=== PATIENT | male | born 1970 ===

== ENCOUNTER 2023-06-01 11:59 | Emergency (ER) | payer OTHER ==
[~2023-06-01] VITALS: Ht 167.6 cm; Wt 84.1 kg
[2023-06-01 12:08] VITALS: BP 135/79; TEMP 97.8
[2023-06-01] MEDS ORDERED: TRIAMCINOLONE A15 GM TP (13:18)
[2023-06-01] MEDS ORDERED: PREDNISONE20 MG PO (13:19)
[2023-06-01] MEDS ORDERED: LAC-HYDRIN121 TP (13:19)
[2023-06-01 13:33] VITALS: PULSE 71
== END 2023-06-01 13:33 | disposition home or self-care (01) ==
LOC: COL.ER 11:59
DX: L25.9 Unspecified contact dermatitis, unspecified cause (principal)